=== PATIENT | female | born 1970 | race Hispanic/Latino ===

== ENCOUNTER → 2025-01-03 | Outpatient (CLI) | payer MEDICARE ==
[~2025-01-03] MED LIST: ATOR40TA69 PO; CLOP75TA32 PO; FAMO20TA8 PO; FOLI0.8T22 PO; LOSA25TA41 PO; MIDO10TA3 PO; TRAM50TA4 PO; TRAZ-185 PO
--- NOTE | 2025-01-03 11:16 | NUR ---
MBSS COMPLETED. Silent aspiration with thin liquids, mildly-thick liquids and mixed textures. RECOMMEND: Regular Solids, Moderately-thick liquids, pills crushed; no mixed textures NOTES: PEG TUBE IN PLACE. Family reports they think PEG is infected. EQUIPMENT SERVICES ASSOCIATE recommended they seek attention with primary MOOSE. DIAGNOSTIC FINDINGS: Pt presents with moderate pharyngeal dysphagia characterized by decreased tongue base retraction, delayed pharyngeal response trigger (triggering at the valleculae and pyriform sinus), decreased hyo-laryngeal elevation/excursion. These characteristics were evidenced by premature spillage into valleculae with spillover into pyriform sinus, residue in posterior pharyngeal wall (mild). Resulting in Silent Aspiration with thin liquids via tsp, mixed textures and mildly thick liquids via (cup sip). Cough response present with Mildly thick liquids via tsp sip. Patient with wet vocal quality post swallow of thin liquids. Aspiration-Penetration Scale Results: Trial1: pureed: 7 Trail2: puddin Trial3: mixed: 1 Trial4: Regular solid: 7 Trial5: Thin via tsp: 1 Trial 6: Mildly liquids via tsp: 6 Trial7: Mildly liquids via cup sip: 7 Trial8: Moderately thick liquids: 7 Results and recommendations were reviewed with the patient and son. All questions answered at this time. EQUIPMENT SERVICES ASSOCIATE provided a sample of thickener and provided options on where to find it in the community. Skilled speech therapy is recommended targeting dysphagia deficits described above. They verbalized understanding and compliance. Addendum: 01/03/[address] AGUILAR Amended: Links added.
--- NOTE | 2025-01-11 09:03 | HMCIMG ---
MODIFIED BARIUM SWALLOW W CINE REASON: DYSPHAGIA FINDINGS: Fluoroscopic assistance was provided to the speech pathologist while performing examination. For findings and dietary recommendations, refer to speech pathologist's report. FLUORO TIME: 2.4 minutes IMPRESSION: Modified barium swallow as described.
== END | disposition home or self-care (01) ==
LOC: RAH 08:21
PROVIDERS: ATTEND Hospitalist
DX: R13.10 Dysphagia, unspecified (principal); R10.13 Epigastric pain
CPT/HCPCS: 74230; 92611